=== PATIENT | male | born 2000 | race Caucasian/White ===

== ENCOUNTER 2024-04-05 10:33 | Emergency (ER) | payer OTHER, SELFPAY ==
[2024-04-05 10:36] VITALS: BP 139/82
--- NOTE | 2024-04-05 11:26 | ED.GENMED ---
History of Present Illness
<Clemente Crews MD, Resident - Last Filed: 04/05/24 13:29>
General
Chief Complaint: Throat Problem
Source: patient
Time Seen by Provider: 04/05/24 11:18
History of Present Illness
History of Present Illness:
Pt is a 23 YO M with history of recurrent tonsil/throat infections for last 6 months presenting today with progressive tonsillar pain on L side. He was seen initially in Urgent Care on 04/03 and was started on Augmentin, but per PCP recommendations,
came in to ER today due to increasing pain. This is his 6th infection this year. He reports SOB, throat pain (worse on L than R side) and mild cough. No headaches, NVD, Chest pain, hemoptysis, wheezing, fevers, or numbness and tingling. No current
sick contacts.
If applicable-neuro sx onset
Onset of symptoms known: Yes
Date of onset of symptoms: 03/29/24
Past History
<Clemente Crews MD, Resident - Last Filed: 04/05/24 13:29>
Past History
ED Past Surgical History: None
Review of Systems
<Clemente Crews MD, Resident - Last Filed: 04/05/24 13:29>
Review of Systems
Constitutional: Reports no symptoms
EENT: Reports sore throat and other (tonsillar pain)
Respiratory: Reports cough and trouble breathing (sensation of tonsil blocking breathing function)
Cardiac: Reports no symptoms
ABD/GI: Reports no symptoms
Musculoskeletal: Reports no symptoms
Skin: Reports no symptoms
Phy Exam
<Clemente Crews MD, Resident - Last Filed: 04/05/24 13:29>
General Physical Exam
General Presentation: well appearing and mild distress
General age: appears stated age
General Habitus: normal
General Mental: alert
General Hydration: appears well hydrated
ENT Exam
ENT Exam: swallowing well
Additional ENT: tonsillar erytheme and edema, small amount of exudates seen in throat
Cardiovascular Exam
Cardiovascular Exam: regular rate/rhythm, no edema and no JVD
Pulmonary Exam
Pulmonary Exam: lungs clear, no respiratory distress, no rales, chest non tender, no crackles, no rhonchi, no stridor and no wheezing
Course
<Clemente Crews MD, Resident - Last Filed: 04/05/24 13:29>
Orders/Labs/Results
Orders:
Orders
04/05/24 11:58
CT Neck With Iv Contrast Urgent
Comment:
Reason For Exam: left neck, tonsillar swelling
04/05/24 11:59
IV Insert/Care/Rem.- Treatment PRN
04/05/24 12:16
Complete Blood Count/With Diff Urgent
Comprehensive Metabolic Panel Urgent
Monotest Urgent
Rapid Strep Group A Urgent
EVELYN Source: Throat/Pharynx
Specimen Description:
Date Specimen was Collected: 04/05/24
Time Specimen was Collected: 12:03
04/05/24 12:26
Dexamethasone Sod Phosphate [Decadron] 20 mg .ROUTE .STK-MED ONE
Ketorolac [Toradol] 15 mg .ROUTE .STK-MED ONE
04/05/24 12:27
Dexamethasone Sod Phosphate [Decadron] 10 mg IV NOW STA
Ketorolac [Toradol] 15 mg IV NOW STA
Abnormal Lab Results
04/05/24
12:16
Carbon Dioxide 32 H mmol/L
(22-30)
04/05/24 12:16
04/05/24 12:16
Vital Signs
Initial and Last Documented VS:
Initial Vital Signs
Temp Pulse Resp BP Pulse Ox
98.4 F 69 18 139/82 95
04/05/24 10:36 04/05/24 10:36 04/05/24 10:36 04/05/24 10:36 04/05/24 10:36
Last Documented Vital Signs
Temp Pulse Resp BP Pulse Ox
98.4 F 63 16 124/79 99
04/05/24 10:36 04/05/24 12:37 04/05/24 12:37 04/05/24 12:37 04/05/24 12:37
<Young Jack, DO - Last Filed: 04/05/24 13:30>
Orders/Labs/Results
Orders:
Orders
04/05/24 11:58
CT Neck With Iv Contrast Urgent
Comment:
Reason For Exam: left neck, tonsillar swelling
04/05/24 11:59
IV Insert/Care/Rem.- Treatment PRN
04/05/24 12:16
Complete Blood Count/With Diff Urgent
Comprehensive Metabolic Panel Urgent
Monotest Urgent
Rapid Strep Group A Urgent
EVELYN Source: Throat/Pharynx
Specimen Description:
Date Specimen was Collected: 04/05/24
Time Specimen was Collected: 12:03
04/05/24 12:26
Dexamethasone Sod Phosphate [Decadron] 20 mg .ROUTE .STK-MED ONE
Ketorolac [Toradol] 15 mg .ROUTE .STK-MED ONE
04/05/24 12:27
Dexamethasone Sod Phosphate [Decadron] 10 mg IV NOW STA
Ketorolac [Toradol] 15 mg IV NOW STA
Abnormal Lab Results
04/05/24
12:16
Carbon Dioxide 32 H mmol/L
(22-30)
04/05/24 12:16
04/05/24 12:16
Vital Signs
Initial and Last Documented VS:
Initial Vital Signs
Temp Pulse Resp BP Pulse Ox
98.4 F 69 18 139/82 95
04/05/24 10:36 04/05/24 10:36 04/05/24 10:36 04/05/24 10:36 04/05/24 10:36
Last Documented Vital Signs
Temp Pulse Resp BP Pulse Ox
98.4 F 63 16 124/79 99
04/05/24 10:36 04/05/24 12:37 04/05/24 12:37 04/05/24 12:37 04/05/24 12:37
<Clemente Crews MD, Resident - Last Filed: 04/05/24 13:29>
MDM/Problems Addressed
Differential Diagnosis Includes:
Mononucleosis, Strep, Tonsillitis, Tonsillar Abscess
MDM/Problems Addressed:
Pt is a 23 YO M with history of recurrent tonsillar/ throat infections presenting to the ER with worsening symptoms. He was being managed on Augmentin. In the ED he was managed with IV Decadron and a neck CT was ordered to r/o abscess. CT negative.
Labs/throat culture pending.
Chronic conditions affecting care: Other
Acute Exacerbation and/or Progression of Chronic Illness: Other
<Clemente Crews MD, Resident - Last Filed: 04/05/24 13:29>
*Radiology
Radiology exam reviewed: radiology read reviewed (CT NAD)
*Pulse Oximetry
Patient hypoxic: no
*EKG
Interpreted by ED Provider?: NA
*Wrapper Cashier Interpretation
Rate: Wrapper Cashier- N/A
*Critical Care Note
Total Time (30-74mins, 75-104mins- exclusive of procedures): Not Applicable
<Clemente Crews MD, Resident - Last Filed: 04/05/24 13:29>
Patient Management
Social determinants of health affecting care: Living situation and Strong social support
Escalation/DeEscalation of care consider admission/obs:
admit not indicated
ED Attending Note
<Clemente Crews MD, Resident - Last Filed: 04/05/24 13:29>
-
Portions of this chart may have been created with voice recognition software.� Occasional wrong word or��sound alike� substitutions may have occurred due to the inherent limitations of voice recognition software.
<Young Jack, - Last Filed: 04/05/24 13:30>
ED Attending Note
Patient seen and examined by attending physician: Yes
I performed a history and physical exam of patient and discussed management with resident, I reviewed resident's note and agree with documented findings and plan of care.: Yes
ED Attending Note:
I reviewed and agree with history and treatment plan by Clemente Crews. My exam reveals mild lymphadenopathy in left posterior cervical chain, mildly tender. No abscess seen on exam. No signs of respiratory distress. Possibly viral pharyngitis.
CT neck no acute findings. Stable for discharge. Due to recurrent symptoms, will have patient follow-up with ENT. Short course of prednisone prescribed.
Discharge Plan
Departure
Patient Disposition: Home (Routine Discharge)
Date of Disposition: 04/05/24
Time of Disposition: 13:23
Patient with high blood pressure during this ER visit?: Yes
Condition: Good
Discharge Problem:
Acute sore throat
Instructions: Sore Throat, Adult (DC), BLOOD PRESSURE
Prescriptions:
New
prednisone 50 mg tablet
50 mg PO DAILY Qty: 5 0RF
Referrals:
Manny Grove MD [Active] - Call in 1-3 days for appt
Wilian Flaherty MD [Family Provider] -
Interventions
Interventions:
*Risk Screen - Suicide Last Done: 04/05/24 10:39
*General Assessment Last Done: 04/05/24 10:39
*Neglect/Abuse Screening Last Done: 04/05/24 10:39
ED-EENT Assessment Last Done: 04/05/24 11:58
ED- Pulmonary Assessment Last Done: 04/05/24 11:58
Discharge Date and Time
Print Language: LITHUANIAN
[2024-04-05] MEDS: DECADRON 10 MG IV (12:31)
[2024-04-05] MEDS: TORADOL 15 MG IV (12:31)
[2024-04-05 12:35] LABS: % Basophils 0.8 % (0-2); % Eosinophils 5.4 % (0-6); % Immature Granulocytes 0.1 % (0-0.5); % Lymphocytes 32.2 % (20.5-51.1); % Monocytes 6.4 % (1.7-9.3); % Neutrophils 55.1 % (42.2-75.2); Absolute Basophils 0.1 10^3/uL (0-0.2); Absolute Eosinophils 0.4 10^3/uL (0-0.7); Absolute Lymphocytes 2.5 10^3/uL (1.2-3.4); Absolute Monocytes 0.5 10^3/uL (0.1-0.6); Absolute Neutrophils 4.2 10^3/uL (1.4-6.5); Hematocrit 44.9 % (39.0-52.0); Mean Corp Hgb Conc. 33.4 g/dL (33.0-37.0); Mean Corpuscular Hgb 30.7 pg (27.0-31.0); Mean Corpuscular Volume 91.8 fL (80.0-94.0); Mean Platelet Volume 9.8 fL (7.4-10.4); Nucleated Red Blood Cells % 0 % (-); Platelet Count 285 10^3/uL (130-400); Red Blood Cell Count 4.89 10^6/uL (4.70-6.10); Red Cell Dist. Width 12.5 % (11.5-14.5); White Blood Cell Count 7.7 10^3/uL (4.8-10.8)
[2024-04-05 12:37] VITALS: BP 124/79
[2024-04-05 12:43] LABS: ALT (SGPT) 17 U/L (0-50); AST (SGOT) 29 U/L (17-59); Alkaline Phosphatase 66 U/L (38-126); Blood Urea Nitrogen 9 mg/dl (9-20); Carbon Dioxide 32 mmol/L (22-30); Chloride 100 mmol/L (98-107); Glucose 92 mg/dl (70-99); Potassium 4.2 mmol/L (3.5-5.1); Sodium 140 mmol/L (135-145); Total Bilirubin 0.8 mg/dl (0.2-1.3); Total Protein 7.9 g/dl (6.3-8.2); eGFR > 60.00
[2024-04-05 13:32] LABS: Monotest Negative (Negative)
== END 2024-04-05 13:49 | disposition home or self-care (01) ==
LOC: EMR 10:33
PROVIDERS: EMERGENCY PHYSICIAN Emergency Medicine; FAMILY PHYSICIAN Internal Medicine
DX: J02.9 Acute pharyngitis, unspecified (principal); R06.02 Shortness of breath; R05.9 Cough, unspecified; R59.1 Generalized enlarged lymph nodes; R03.0 Elevated blood-pressure reading, without diagnosis of hypertension; Z86.19 Personal history of other infectious and parasitic diseases
CPT/HCPCS: 99284; 96374; 96375; 70491; 80053; 85025; 86308; 87070; 87880; Q9967

== ENCOUNTER 2024-09-09 19:45 | Day surgery (SDC) | payer OTHER, SELFPAY ==
[2024-09-09] VITALS (14 sets, daily range): BP systolic 98–147; BP diastolic 52–102; BMI 26.9
[2024-09-09] MEDS: OMNIPAQUE 50 ML PO (12:54)
[2024-09-09 13:12] LABS: % Basophils 0.3 % (0-2); % Eosinophils 1.8 % (0-6); % Immature Granulocytes 0.1 % (0-0.5); % Lymphocytes 31.4 % (20.5-51.1); % Neutrophils 58.4 % (42.2-75.2); Absolute Eosinophils 0.1 10^3/uL (0-0.7); Absolute Lymphocytes 2.4 10^3/uL (1.2-3.4); Absolute Monocytes 0.6 10^3/uL (0.1-0.6); Absolute Neutrophils 4.5 10^3/uL (1.4-6.5); Hematocrit 42.2 % (39.0-52.0); Hemoglobin 14.4 g/dL (13.0-18.0); Mean Corp Hgb Conc. 34.1 g/dL (33.0-37.0); Mean Corpuscular Hgb 30.8 pg (27.0-31.0); Mean Corpuscular Volume 90.2 fL (80.0-94.0); Mean Platelet Volume 9.6 fL (7.4-10.4); Nucleated Red Blood Cells % 0 % (-); Platelet Count 275 10^3/uL (130-400); Red Blood Cell Count 4.68 10^6/uL (4.70-6.10); Red Cell Dist. Width 12.8 % (11.5-14.5); White Blood Cell Count 7.8 10^3/uL (4.8-10.8)
[2024-09-09 13:27] LABS: ALT (SGPT) 17 U/L (0-50); AST (SGOT) 22 U/L (17-59); Albumin 4.8 g/dl (3.5-5.0); Alkaline Phosphatase 61 U/L (38-126); Blood Urea Nitrogen 8 mg/dl (9-20); Calcium 9.7 mg/dl (8.4-10.2); Carbon Dioxide 31 mmol/L (22-30); Chloride 99 mmol/L (98-107); Glucose 93 mg/dl (70-99); Lipase 59 U/L (23-300); Potassium 3.8 mmol/L (3.5-5.1); Sodium 139 mmol/L (135-145); Total Bilirubin 0.9 mg/dl (0.2-1.3); Total Protein 7.3 g/dl (6.3-8.2); eGFR > 60.00
[2024-09-09 13:40] LABS: Urine Albumin Negative (Neg - Trace); Urine Bilirubin Negative (Negative); Urine Character Clear (Clear); Urine Color Yellow; Urine Glucose Negative (Negative); Urine Ketone Negative (Negative); Urine Leukocyte Negative (Negative); Urine Nitrite Negative (Negative); Urine Occult Blood Negative (Negative); Urine Specific Gravity 1.005 (<1.030); Urine Urobilinogen Negative (Neg - 1+)
--- NOTE | 2024-09-09 14:54 | ED.GENMED ---
History of Present Illness
General
Chief Complaint: Abdominal Pain
Source: patient
Exam Limitations: none
Time Seen by Provider: 09/09/24 14:29
Nursing documentation reviewed up to this point in time: agreed with
History of Present Illness
History of Present Illness:
24 y/o M with no sig pmh
here with lower abd pain, RLQ, since yesterday
initially more mild and gradually worse
does come in waves but is now constant
has lack of appetite and some mild nauesa
no vomiting, diarrhea
had bm this morning that was a little dark but took pepto yesteday
he had some chills yesterday but no known fever
has never had surgery
had something similar a few months ago that lastwed a week, he thought it was just gas pain, resolved
Past History
Past History
ED Past Medical History: None
ED Past Surgical History: None
Social History
Tobacco: Non-smoker
Alcohol: None
Drug: None
Personal: Single
Living: with family
Employment: Employed
Review of Systems
Review of Systems
Allergies reviewed?: Yes
All Other Systems: Not applicable
Phy Exam
Physical Exam
Physical Exam:
GENERAL: Alert , in no apparent distress
EYE: pupils equal and reactive
NECK: Supple
ENT: o/p clr, mmm.
CARDIAC: Regular rate and rhythm .
LUNGS: Clear breath sounds bilaterally, no acute respiratory distress, no wheezes/rales/rhonchi
ABDOMEN: Soft, moderate right lower quadrant tenderness, McBurney's point tenderness, no r/g, no cvat, normal bowel sounds
NEUROLOGICAL: Alert and oriented, no focal neuro deficits
SKIN: Warm and dry, skin intact.
MUSCULOSKELETAL: No edema, well perfused.
PSYCH: Normal and appropriate interaction.
Course
Orders/Labs/Results
Orders:
Orders
09/09/24 12:51
Iohexol [Omnipaque] 50 ml .ROUTE .STK-MED ONE
09/09/24 12:54
Iohexol [Omnipaque] See Protocol PO NOW STA
09/09/24 12:58
Complete Blood Count/With Diff Urgent
Comprehensive Metabolic Panel Urgent
Lipase Urgent
Urinalysis Reflex To Culture Urgent
Date Specimen was Collected: 09/09/24
Time Specimen was Collected: 12:49
09/09/24 13:33
CT Abd/pel W Iv And Oral Contr Urgent
Comment:
Reason For Exam: RLQ pain
Iohexol [Omnipaque] See Protocol PO NOW STA
09/09/24 Dinner
Clear Liquid
At Your Request: Full Participation
Ketorolac [Toradol] 15 mg .ROUTE .STK-MED ONE
09/09/24 15:03
Ketorolac [Toradol] 15 mg IV NOW STA
09/09/24 15:55
Piperacillin/Tazo 3.375 Gram [Zosyn] 3.375 gram in 50 ml IV NOW
09/09/24 18:53
Admit Patient As Directed
Co-Sign Provider:
Level of Care: Post Proc/Surg Recovery
Assign to:: Medical/Surgical
Physician / Group: Dr. Morocho
Diagnosis: Acute Appendicitis
Reason for Overnight Stay: Standard of Care
Code Status As Directed
Resuscitation Status: Full Code
HYDROmorphone [Dilaudid] 0.5 mg IV Q2HPRN PRN
Ketorolac [Toradol] 10 mg IV Q6H PRN
Activity As Directed
Activity Level: Out of Bed-Early Mobility
Intake/ Output As Directed
Frequency: Per unit guidelines
Vital Signs As Directed
Frequency: Per unit guidelines
PRN Pain Medication Management As Directed
May give lesser potent ordered pain med per pt: Yes
preference::
Protocol:: Medication orders for pain may be administered in a
manner that supports deferring to patient preference
when the pt is:
- Requesting an ordered lesser potent pain medication.
Least to most potent pain medications are defined
as: acetaminophen < NSAID < tramadol < opioids
(morphine, oxycodone, hydromorphone).
- Requesting a lesser dose of the same medication IF
ORDERED.
- Requesting a less intrusive route of administration
if both routes are prescribed by the provider (PO <
IV).
09/09/24 18:57
Pneumatic Compression Sleeves As Directed
Type: Thigh high
DX Deep Vein Thrombosis Video Routine
09/09/24 19:02
HYDROmorphone [Dilaudid] 0.25 mg IV PACU-Q5MPRN PRN
HYDROmorphone [Dilaudid] 0.5 mg IV PACU-Q5MPRN PRN
Ondansetron Injectable [Zofran] 4 mg IV PACU-ONCEPRN PRN
Prochlorperazine [Compazine] 5 mg IV PACU-ONCEPRN PRN
Notify MD As Directed
Notify physician if: for SDS patients with known or suspected sleep obstructive sleep apnea, monitor in the
PACU.
Notify MD for any apneic/desaturation episodes
O2 Therapy [RESP] Urgent
Titrate/Wean O2 to maintain O2 sat greater than (%): 92
Special Instructions: -Provide supplemental oxygen to achieve O2 sat of 92% or greater.
-After 15 min, may wean O2 and discontinue if patient is able to maintain O2 sat of 92%
or greater during recovery period.
If patient is a discharge home, without oxygen therapy, notify anestheiologist if
unable to maintain O2 SAT of 92% or greater on room air for MD clearance.
09/09/24 19:58
Lidocaine 2% Mpf [Xylocaine Mpf 2%] 100 mg .ROUTE .STK-MED ONE
Rocuronium Milton [Rocuronium] 50 mg .ROUTE .STK-MED ONE
09/09/24 20:01
Fentanyl Citrate/Pf [Sublimaze] 100 mcg .ROUTE .STK-MED ONE
09/09/24 20:02
Fentanyl Citrate/Pf [Sublimaze] 100 mcg .ROUTE .STK-MED ONE
Midazolam HCl [Versed] 2 mg .ROUTE .STK-MED ONE
Midazolam HCl [Versed] 5 mg .ROUTE .STK-MED ONE
Midazolam HCl [Versed] 5 mg .ROUTE .STK-MED ONE
Ondansetron Injectable [Zofran] 4 mg .ROUTE .STK-MED ONE
Propofol [Diprivan] 20 ml .ROUTE .STK-MED
Rocuronium Milton [Rocuronium] 50 mg .ROUTE .STK-MED ONE
09/09/24 20:03
Midazolam HCl [Versed] 2 mg .ROUTE .STK-MED ONE
09/09/24 20:49
Bupivacaine 0.5%Pf/Epinephrin [Sensorcain-Mpf Epi 0.5%-0.0005] 30 ml .ROUTE .STK-MED ONE
09/09/24 21:39
HYDROmorphone [Dilaudid] 1 mg .ROUTE .STK-MED ONE
09/09/24 21:44
Dexamethasone Sod Phosphate [Decadron] 20 mg .ROUTE .STK-MED ONE
Ondansetron Injectable [Zofran] 4 mg .ROUTE .STK-MED ONE
Sugammadex Sodium [Bridion] 200 mg .ROUTE .STK-MED ONE
09/09/24 21:47
OR Pathology Routine
Pre-Operative Diagnosis: acute appendicitis
Operative Procedure: appendectomy
Surgeon: rashawn
Circulating Nurse: susy
Specimen Type: appendix
09/09/24 22:00
Piperacillin/Tazo 3.375 Gram [Zosyn] 3.375 gram in 50 ml IV Q6H
09/09/24 22:07
HYDROmorphone [Dilaudid] 1 mg .ROUTE .STK-MED ONE
09/09/24 23:00
Flush (0.9% Sodium Chloride) [Flush (Nss)] See Dose Instructions IV PER PROTOCOL
09/10/24 00:00
Acetaminophen [Tylenol] 650 mg PO Q4HWA
09/10/24 01:31
Pt Screening Request from [facility] Routine
09/10/24 04:44
Basic Metabolic Panel IN AM
Complete Blood Count/With Diff IN AM
09/10/24 Breakfast
Regular
At Your Request: Full Participation
09/10/24 08:47
Oxycodone [Roxicodone] 5 mg PO Q4HPRN PRN
09/10/24 12:00
Ibuprofen [Motrin] 600 mg PO Q6H
09/11/24 08:00
Escitalopram Oxalate [Lexapro] 20 mg PO DAILY
Lamotrigine [Lamictal] 100 mg PO DAILY
09/11/24 11:25
Discharge Patient As Directed
Is patient a candidate for the influenza vaccine?: No
Do you have a designated caregiver: Yes-same as spokesperson
Abnormal Lab Results
09/09/24 09/10/24
12:58 04:44
RBC 4.68 L 10^6/uL 4.61 L 10^6/uL
(4.70-6.10) (4.70-6.10)
MCH 31.2 H pg
(27.0-31.0)
Absolute Neuts (auto) 7.3 H 10^3/uL
(1.4-6.5)
Absolute Lymphs (auto) 0.8 L 10^3/uL
(1.2-3.4)
Neutrophils % 88.7 H %
(42.2-75.2)
Lymphocytes % 9.4 L %
(20.5-51.1)
Monocytes % 1.5 L %
(1.7-9.3)
Carbon Dioxide 31 H mmol/L
(22-30)
BUN 8 L mg/dl
(9-20)
Glucose 132 H mg/dl
(70-99)
09/10/24 04:44
09/10/24 04:44
Vital Signs
Initial and Last Documented VS:
Initial Vital Signs
Temp Pulse Resp BP Pulse Ox
36.9 C 75 16 143/102 98
09/09/24 12:46 09/09/24 12:46 09/09/24 12:46 09/09/24 12:46 09/09/24 12:46
Last Documented Vital Signs
Temp Pulse Resp BP Pulse Ox
36.9 C 62 16 110/67 96
09/11/24 11:41 09/11/24 11:41 09/11/24 11:41 09/11/24 11:41 09/11/24 11:41
MDM/Problems Addressed
Differential Diagnosis Includes:
acute appendicitis, kidney stone, constipation
MDM/Problems Addressed:
24 y/o M with RLQ pain since yesterday
anorexia
nausea
no fever
tender RLQ
mcburney's point
no guarding
no rebound
wbc normal
ct shows acute appendicitis
awaiting acceptance from gen surgery
*Critical Care Note
Total Time (30-74mins, 75-104mins- exclusive of procedures): Not Applicable
ED Attending Note
-
Portions of this chart may have been created with voice recognition software.� Occasional wrong word or��sound alike� substitutions may have occurred due to the inherent limitations of voice recognition software.
Discharge Plan
Departure
Patient Disposition: Admit
Date of Disposition: 09/09/24
Time of Disposition: 17:22
Admit to: Med/Surg
Admit to doctor: Rashawn
Presentation/result/management discussed w/ accepting MD/DO: Surgery
Patient with high blood pressure during this ER visit?: No
Condition: Serious
Covid-19: Not Applicable
Discharge Problem:
Acute appendicitis
Interventions
Interventions:
*Risk Screen - Suicide Last Done: 09/09/24 22:00
*General Assessment Last Done: 09/09/24 14:35
*Neglect/Abuse Screening Last Done: 09/09/24 12:46
*Nursing Disposition Last Done: 09/09/24 19:58
TF-Vgjepj-Lezvwowitm Assessment Last Done: 09/09/24 14:35
Discharge Date and Time
Discharge Date/Time: 09/09/24 19:59
[2024-09-09] MEDS: TORADOL 15 MG IV (15:03)
[2024-09-09] MEDS: ZOSYN 50 IV ×2 (16:31→23:01)
--- NOTE | 2024-09-09 17:19 | HPS.HSE ---
Family Physician
-
Family Physician: Wilian Flaherty
Chief Complaint
-
Abdominal pain
History of Present Illness
This is a 24-year-old male with a history significant for depression on Lexapro and Lamictal who presents with a 1 day history of periumbilical/right lower quadrant abdominal pain. Endorses some nausea and chills yesterday. The pain has not gotten
significantly worse but has not improved either. The patient denies Fever, Chest Pain, Shortness Of Breath, Vomiting, changes in urinary and bowel habits, unintentional weight loss, jaundice, icterus, acolic stools.
Last Endoscopy: Never
Last colonoscopy: Never
Medical History
Past Medical History
Past Medical History: Reports Other (Depression)
Past Surgical History: Reports None
Social History
Unable to obtain full social history at this time due to: Dementia
Tobacco: Non-smoker
Alcohol: None
Drug: None
Personal: Single
Employment: Employed
Family History
Family History: Not pertinent
Allergies / Home Medications
Allergies reflects when Allergies were last updated in [facility].
Home Medications with original date entered in [facility]
Allergy/Medication List:
None
Review of Systems
-
A 12 point ROS was completed and negative except as noted: Yes
Physical Exam
Vital Signs
Vital Signs
Temp Pulse Resp BP Pulse Ox
98.4 F 78 16 146/96 98
09/09/24 12:46 09/09/24 15:52 09/09/24 15:52 09/09/24 17:00 09/09/24 12:46
Physical Exam
General: Well Developed
HEENT: NormoCephalic
Respiratory: Non Labored Respirations
GI: Soft, Non Distended and Tender
Laboratory Results
-
09/09/24 12:58
09/09/24 12:58
Laboratory Results
Total Bilirubin 0.9 mg/dl (0.2-1.3) 09/09/24 12:58
AST 22 U/L (17-59) 12 12:58
ALT 17 U/L (0-50) 09/09/24 12:58
Alkaline Phosphatase 61 U/L (38-126) 09/09/24 12:58
Lipase 59 U/L (23-300) 09/09/24 12:58
Data Reviewed
-
CT Scan: Image Personally Visualized and interpreted, Report Reviewed by me, Discussed with Physician and Discussed with Patient
Lab Data: Labs Reviewed by me, Discussed with Physician and Discussed with Patient
Impression/Plan
-
IMPRESSION:
This is a 24-year-old male with acute appendicitis
PLAN:
Will plan for a laparoscopic appendectomy tonight.
N.p.o., IV fluids, IV antibiotics.
Risks/Benefits/Alternatives, expected postoperative course and possible complications (bleeding, infection, injury to surrounding structures, acute/chronic pain) discussed at length. Patient wishes to proceed with surgery. All questions answered.
Consent obtained.
I spent 60 minutes in total for the care of this patient today including direct patient care and counseling, reviewing labs, imaging, coordination of care, as well as documentation.
--- NOTE | 2024-09-09 17:23 | W.SUR.PREOP ---
Pre-Operative Surgical Note
-
I have examined this patient prior to the performance of the scheduled procedure.
The patient's condition is unchanged from the time of the current History and
Physical and the patient is able to undergo the scheduled procedure.
--- NOTE | 2024-09-09 22:00 | W.IMMPOSTOP ---
Surgical Immed Post Op Note
-
Primary Surgeon: Marin Morocho MD
Assisting Surgeon: None
Pre-op Diagnosis: Acute appendicitis
Post-op Diagnosis: Same
Procedure Performed: Laparoscopic appendectomy
Anesthesia Type: General
Specimen / Cultures: None
Estimated Blood Loss: 3 cc
Complications: None
Operative Findings: Three 5 mm port appendectomy after Veress entry. Serpentine appendix that was inflamed but not perforated going up the all lateral right colon and then folded back on itself. The portion of the appendix that was plastered to
the colon was gently dissected off of the colon wall using sharp dissection. The base of the appendix appeared clean and was ligated with 2-0 PDS Endoloops.
POST OP PLAN:
Imaging: None
Labs: Routine AM
Diet: Advance to Regular as tolerated
Analgesia: Tylenol 650mg q6 Adam, Charlene 5mg q6 PRN, Dilaudid 0.5mg q2h PRN
Neuro/vascular checks: q4h
AC/AP: Hold Therapeutic AC, Ok for DVT PPx
Activity: Ad Candy
Wound/Incisions/Drains: Routine
Abx: Will continue antibiotics while admitted.
Dispo: RNF, anticipate discharge home tomorrow.
--- NOTE | 2024-09-09 22:02 | OR.RPT ---
Operative Report
Operative Report
Patient Name: Jasper Wade
: 2000
Date of Operation: 09/09/2024
Preoperative Diagnosis: Acute Appendicitis
Postoperative Diagnosis: Same
Procedure(s):
Laparoscopic Appendectomy
Surgeon(s):
Dr. Morocho
Gunner'S Mate G(s):
None
Anesthesia: General
Estimated Blood Loss: 3 cc
Urine Output: None
Drains/Lines/Implants: None
Specimens:
1. Appendix
HPI/Surgical Indications:
This is a 24-year-old male who presents with a 1 day history of abdominal pain. Exam, labs and imaging are consistent with acute appendicitis. Risks/Benefits/Alternatives were discussed at length, and the patient agreed to proceed with surgery.
Operative Findings: Three 5 mm port appendectomy after Veress entry. Serpentine appendix that was inflamed but not perforated going up the all lateral right colon and then folded back on itself. The portion of the appendix that was plastered to
the colon was gently dissected off of the colon wall using sharp dissection. The base of the appendix appeared clean and was ligated with 2-0 PDS Endoloops.
Procedure Description:
The patient was placed in the supine position, with the left arm tucked, and general anesthesia was induced. The abdomen was prepared and draped in a sterile fashion so as to expose the entire abdomen. A surgical time out was taken. Abdominal access
was obtained with aleft subcostal Veress which required 2 passes followed by a left lower quadrant 5 mm mm Optiview trocar entry. After confirming no injury on entrance, two additional 5mm ports were placed in the suprapubic area just off midline
and just below the umbilicus it also appeared somewhat serpentine traveling up the. The patient was placed in Trendelenberg with the right slightly up . The appendix was identified and a window was created in the mesoappendix. The appendix was
suppurative and inflamed but not perforated. Colon and then back on itself. There was a portion of the appendix that abutted the colon very densely, this was dissected off using sharp dissection. Using a laparoscopic bipolar energy device, the
meso appendix was divided. The base of the appendix appeared uninvolved and was ligated/divided using two 0-PDS Endoloops and the energy device. The appendix was placed in a specimen retrieval bag. There was some blood in the field that was
suctioned up. No irrigation was used. Hemostasis was confirmed and the ports were removed under visualization. The specimen was passed off the field. The umbilical port was closed with a [id number] 0-PDS and the skin for all three ports was
closed with interrupted monocryls and covered with dermabond. The patient was awoken from anesthesia in good condition and transported to the recovery area.
I was the attending physician and performed the procedure with no assistance. I was present for all portions of the case.
Marin Morocho MD
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
[2024-09-09] MEDS: TYLENOL 650 MG PO (23:19)
[2024-09-10 00:50] VITALS: BP 107/63
[2024-09-10] MEDS: TORADOL 10 MG IV (02:00)
[2024-09-10 03:10] VITALS: BP 102/62
[2024-09-10] MEDS: ZOSYN 50 IV ×4 (04:15→21:52)
[2024-09-10] MEDS: TYLENOL 650 MG PO ×5 (04:15→20:49)
[2024-09-10] MEDS: DILAUDID 0.5 MG IV ×2 (04:31→07:39)
[2024-09-10 05:23] LABS: % Immature Granulocytes 0.4 % (0-0.5); % Lymphocytes 9.4 % (20.5-51.1); % Monocytes 1.5 % (1.7-9.3); % Neutrophils 88.7 % (42.2-75.2); Absolute Lymphocytes 0.8 10^3/uL (1.2-3.4); Absolute Monocytes 0.1 10^3/uL (0.1-0.6); Absolute Neutrophils 7.3 10^3/uL (1.4-6.5); Hematocrit 42.7 % (39.0-52.0); Hemoglobin 14.4 g/dL (13.0-18.0); Mean Corp Hgb Conc. 33.7 g/dL (33.0-37.0); Mean Corpuscular Hgb 31.2 pg (27.0-31.0); Mean Corpuscular Volume 92.6 fL (80.0-94.0); Mean Platelet Volume 9.9 fL (7.4-10.4); Nucleated Red Blood Cells % 0 % (-); Platelet Count 269 10^3/uL (130-400); Red Blood Cell Count 4.61 10^6/uL (4.70-6.10); Red Cell Dist. Width 12.9 % (11.5-14.5); White Blood Cell Count 8.2 10^3/uL (4.8-10.8)
[2024-09-10 05:51] LABS: Blood Urea Nitrogen 11 mg/dl (9-20); Calcium 9.3 mg/dl (8.4-10.2); Carbon Dioxide 29 mmol/L (22-30); Chloride 100 mmol/L (98-107); Estimated Creatinine Clearance 116 ml/min; Glucose 132 mg/dl (70-99); Potassium 4.5 mmol/L (3.5-5.1); Sodium 139 mmol/L (135-145); eGFR > 60.00
[2024-09-10 08:00] VITALS: BP 124/71
--- NOTE | 2024-09-10 08:59 | CM ---
Patient seen at bedside. Patient states that he lives alone in an apartment. Patient stated that his parents live in [place] and he may go there after discharge as his father would be available if he had any needs. Patient PCP is Dr. Richter and
Patient stated that he uses the [facility] in [place]. Patient complaining of pain, nursing updated. Patient plan uncertain as he feels he has so much pain. CM will continue to follow for discharge planning needs.
Plan; home with VN vs home with no needs
--- NOTE | 2024-09-10 10:29 | W.PN.GS2 ---
Addendum entered and electronically signed by Tonny Hernandez MD 09/10/24 11:51:
I saw and examined the patient.
The Dowel Sander Operator's note was reviewed and I agree with the note.
Comment: C/o pain, denies n/v, had a full breakfast without issues. Exam approp. Will re-eval this afternoon, possible DC home
Original Note:
Today's Communication / Plan
-
Pain control
dispo planning
Assessment / Plan
-
24 yo male presenting with acute appendicitis now POD #1 lap appi
AFVSS
Notes pain/tenderness on exam, limiting his movement d/t discomfort
Tolerating diet thus far
--Continue regular diet and follow for tolerance
--Add oral oxycodone prn with scheduled tylenol/ibuprofen
--OOB/Ambulate
Anticipate discharge later today if continues to tolerate diet once pain controlled
Subjective Data
-
Date of Service: September 10, 2024
Patient seen and examined at bedside with Dr. Hernandez. Denies n/v. Tolerating diet but with some bloating/discomfort after eating a larger breakfast this morning. Pain with movement. Passing flatus.
Objective Data
-
Intake and Output
09/09/24 09/10/24 09/11/24
06:59 06:59 06:59
Intake Total 120 / 120
Output Total 250 / 250
Balance -130 / -130
Intake:
Oral fluids 120 / 120
Output:
Urine, Voided 250 / 250
Vital Signs
Temp Pulse Resp BP Pulse Ox
98.2 F 83 16 124/71 96
09/10/24 08:00 09/10/24 08:00 09/10/24 08:00 09/10/24 08:00 09/10/24 08:00
Lab Results
09/10/24 04:44
09/10/24 04:44
Calcium 9.3 mg/dl (8.4-10.2) 09/10/24 04:44
Total Bilirubin 0.9 mg/dl (0.2-1.3) 09/09/24 12:58
AST 22 U/L (17-59) 09/09/24 12:58
ALT 17 U/L (0-50) 09/09/24 12:58
Alkaline Phosphatase 61 U/L (38-126) 09/09/24 12:58
Total Protein 7.3 g/dl (6.3-8.2) 09/09/24 12:58
Albumin 4.8 g/dl (3.5-5.0) 09/09/24 12:58
Physical Exam
-
NAD
ABD soft, nd, tender to RLQ
Incisions clear, dry, intact
[2024-09-10] MEDS: MOTRIN 600 MG PO ×2 (11:20→17:54)
[2024-09-10] MEDS: ROXICODONE 5 MG PO ×2 (15:07→22:50)
[2024-09-10 16:00] VITALS: BP 106/63
[2024-09-10 20:47] VITALS: BP 120/65
[2024-09-10] MEDS: FLUSH (NSS) 1 FLUSH IV (21:53)
[2024-09-10 23:00] VITALS: BP 102/64
[2024-09-11] MEDS: TYLENOL PO (01:09)
[2024-09-11] MEDS: MOTRIN PO (01:09)
[2024-09-11] MEDS: ZOSYN 50 IV ×2 (04:44→09:08)
[2024-09-11] MEDS: TYLENOL 650 MG PO ×2 (04:44→09:08)
[2024-09-11] MEDS: MOTRIN 600 MG PO (05:21)
[2024-09-11 07:24] VITALS: BP 121/74
[2024-09-11] MEDS: ROXICODONE 5 MG PO (09:07)
[2024-09-11] MEDS: LEXAPRO 20 MG PO (09:08)
[2024-09-11] MEDS: LAMICTAL 100 MG PO (09:08)
--- NOTE | 2024-09-11 11:25 | W.PN.GS2 ---
Addendum entered and electronically signed by Tonny Hernandez MD 09/11/24 12:09:
I saw and examined the patient.
The Instructor Warper's note was reviewed and I agree with the note.
Comment: Improved. Ambulating, pain controlled, yessi PO. Exam approp. OK for DC home
Original Note:
Today's Communication / Plan
-
dispo planning
Assessment / Plan
-
24 yo male presenting with acute appendicitis now POD #2 lap appi
AFVSS
Tolerating diet, +BM
Pain better controlled
--Continue regular diet and follow for tolerance
--Continue oral oxycodone prn with scheduled tylenol/ibuprofen
--OOB/Ambulate
Discharge to home
Subjective Data
-
Date of Service: September 11, 2024
Patient seen and examined at bedside with Dr. Hernandez. Pain better controlled today and moving more freely. Denies n/v. Had a BM overnight. Tolerating diet.
Objective Data
-
Intake and Output
09/10/24 09/11/24 09/12/24
06:59 06:59 06:59
Intake Total 120 / 120 1060 / 1060
Output Total 250 / 250
Balance -130 / -130 1060 / 1060
Intake:
Oral fluids 120 / 120 960 / 960
IV piggybacks 100 / 100
Output:
Urine, Voided 250 / 250
Other:
Number of approximated MODERATE 2
amounts of urine
Vital Signs
Temp Pulse Resp BP Pulse Ox
97.4 F 61 16 121/74 99
09/11/24 07:24 09/11/24 07:24 09/11/24 07:24 09/11/24 07:24 09/11/24 09:04
Lab Results
09/10/24 04:44
09/10/24 04:44
Calcium 9.3 mg/dl (8.4-10.2) 12 04:44
Total Bilirubin 0.9 mg/dl (0.2-1.3) 09/09/24 12:58
AST 22 U/L (17-59) 09/09/24 12:58
ALT 17 U/L (0-50) 09/09/24 12:58
Alkaline Phosphatase 61 U/L (38-126) 09/09/24 12:58
Total Protein 7.3 g/dl (6.3-8.2) 09/09/24 12:58
Albumin 4.8 g/dl (3.5-5.0) 09/09/24 12:58
Physical Exam
-
NAD
ABD soft, nd, minimally tender to RLQ
Incisions clear, dry, intact
[2024-09-11 11:41] VITALS: BP 110/67
== END 2024-09-11 12:10 | disposition home or self-care (01) ==
LOC: SDS 19:45
PROVIDERS: Emergency Medicine; ATTENDING PHYSICIAN Surgery; EMERGENCY PHYSICIAN Emergency Medicine; FAMILY PHYSICIAN Internal Medicine
DX: K35.80 Unspecified acute appendicitis (principal)
CPT/HCPCS: 44970; 88304; 74177; 80048; 80053; 81003; 83690; 85025; 99285; C1776; Q9967

== ENCOUNTER 2024-09-28 18:01 | Emergency (ER) | payer OTHER, SELFPAY ==
[2024-09-28 18:12] VITALS: BP 146/90
[2024-09-28 18:40] LABS: % Basophils 1.1 % (0-2); % Eosinophils 3.9 % (0-6); % Immature Granulocytes 0.2 % (0-0.5); % Lymphocytes 39.8 % (20.5-51.1); % Monocytes 7.2 % (1.7-9.3); % Neutrophils 47.8 % (42.2-75.2); Absolute Basophils 0.1 10^3/uL (0-0.2); Absolute Eosinophils 0.3 10^3/uL (0-0.7); Absolute Lymphocytes 2.5 10^3/uL (1.2-3.4); Absolute Monocytes 0.5 10^3/uL (0.1-0.6); Absolute Neutrophils 3.1 10^3/uL (1.4-6.5); Hematocrit 41.2 % (39.0-52.0); Hemoglobin 14.3 g/dL (13.0-18.0); Mean Corp Hgb Conc. 34.7 g/dL (33.0-37.0); Mean Corpuscular Volume 89.2 fL (80.0-94.0); Mean Platelet Volume 9.5 fL (7.4-10.4); Nucleated Red Blood Cells % 0 % (-); Platelet Count 314 10^3/uL (130-400); Red Blood Cell Count 4.62 10^6/uL (4.70-6.10); Red Cell Dist. Width 12.8 % (11.5-14.5); White Blood Cell Count 6.4 10^3/uL (4.8-10.8)
[2024-09-28 18:55] LABS: COVID-19 Antigen Negative (Negative)
[2024-09-28 19:05] LABS: ALT (SGPT) 20 U/L (0-50); AST (SGOT) 26 U/L (17-59); Albumin 4.7 g/dl (3.5-5.0); Alkaline Phosphatase 69 U/L (38-126); Blood Urea Nitrogen 8 mg/dl (9-20); Calcium 9.6 mg/dl (8.4-10.2); Carbon Dioxide 28 mmol/L (22-30); Chloride 100 mmol/L (98-107); Glucose 97 mg/dl (70-99); Potassium 3.9 mmol/L (3.5-5.1); Sodium 137 mmol/L (135-145); Total Bilirubin 0.3 mg/dl (0.2-1.3); Total Protein 7.3 g/dl (6.3-8.2); eGFR > 60.00
[2024-09-28] MEDS: OMNIPAQUE 50 ML PO (20:19)
[2024-09-28 20:24] VITALS: BMI 26.7
[2024-09-28 20:26] VITALS: BP 127/85
[2024-09-28 21:00] VITALS: BP 127/79
[2024-09-28 23:04] LABS: Urine Albumin Negative (Neg - Trace); Urine Bilirubin Negative (Negative); Urine Character Clear (Clear); Urine Color Straw; Urine Glucose Negative (Negative); Urine Ketone Negative (Negative); Urine Leukocyte Negative (Negative); Urine Nitrite Negative (Negative); Urine Occult Blood Negative (Negative); Urine Specific Gravity 1.005 (<1.030); Urine Urobilinogen Negative (Neg - 1+)
--- NOTE | 2024-09-28 23:23 | ED.GENMED ---
History of Present Illness
General
Chief Complaint: Fever
Source: patient
Exam Limitations: none
Time Seen by Provider: 09/28/24 19:55
Nursing documentation reviewed up to this point in time: agreed with
History of Present Illness
History of Present Illness:
Patient to ED [facility] complaint of fever and RLQ abd pain. Symptoms started today. States he had an appendectomy 3 weeks ago. No issues until today. Brought self to ED for eval. Denies n/v/d.
Past History
Past History
ED Past Medical History: None
ED Past Surgical History: None
Social History
Tobacco: Non-smoker
Alcohol: None
Drug: None
Personal: Single
Living: with family
Employment: Employed
Review of Systems
Review of Systems
Allergies reviewed?: Yes
All Other Systems: ROS reviewed and negative except as documented in HPI and ROS
Constitutional: Reports fever
EENT: Reports no symptoms
Respiratory: Reports no symptoms
Cardiac: Reports no symptoms
ABD/GI: Reports abdominal pain (RLQ)
: Reports no symptoms
Musculoskeletal: Reports no symptoms
Skin: Reports no symptoms
Neurological: Reports no symptoms
Psychiatric: Reports no symptoms
Phy Exam
General Physical Exam
General Presentation: well appearing and no apparent distress
General age: appears stated age
General Skin: warm and dry
General Habitus: normal
General Mental: alert
Cardiovascular Exam
Cardiovascular Exam: regular rate/rhythm and no edema
Gastrointestinal Exam
Gastrointestinal Exam: normal bowel sounds, soft, no organomegaly, non distended and no cva tenderness
Palpation: right lower quadrant: Mild tenderness
Musculoskeletal Exam
Musculoskeletal Exam: full ROM and neuro vasc intact
Skin Exam
Skin Exam: normal color, warm/dry and no rash
Psychiatric Exam
Psychiatric Exam: normal mood/affect
Course
Orders/Labs/Results
Orders:
Orders
09/28/24 18:27
COVID-19 Antigen Urgent
Source: Nasal Swab
Complete Blood Count/With Diff Urgent
Comprehensive Metabolic Panel Urgent
Influenza A+B Rapid Molecular Urgent
EVELYN Source: Nasal Swab
Specimen Description:
09/28/24 20:02
CT Abd/pel W Iv And Oral Contr Urgent
Comment:
Reason For Exam: RLQ pain, fever. S/p appendectomy x 3 weeks.
Iohexol [Omnipaque] See Protocol PO NOW STA
09/28/24 22:57
Urinalysis Reflex To Culture Urgent
Date Specimen was Collected: 09/28/24
Time Specimen was Collected: 22:52
Abnormal Lab Results
09/28/24
18:27
RBC 4.62 L 10^6/uL
(4.70-6.10)
BUN 8 L mg/dl
(9-20)
09/28/24 18:27
09/28/24 18:27
Vital Signs
Initial and Last Documented VS:
Initial Vital Signs
Temp Pulse Resp BP Pulse Ox
98.4 F 82 18 146/90 98
09/28/24 18:12 09/28/24 18:12 09/28/24 18:12 09/28/24 18:12 09/28/24 18:12
Last Documented Vital Signs
Temp Pulse Resp BP Pulse Ox
98.4 F 82 18 127/79 96
09/28/24 20:30 09/28/24 18:12 09/28/24 18:12 09/28/24 21:00 09/28/24 22:00
*Radiology
Radiology exam reviewed: radiology read reviewed
*Pulse Oximetry
Patient hypoxic: no
*Critical Care Note
Total Time (30-74mins, 75-104mins- exclusive of procedures): Not Applicable
ED Attending Note
-
Portions of this chart may have been created with voice recognition software.� Occasional wrong word or��sound alike� substitutions may have occurred due to the inherent limitations of voice recognition software.
Discharge Plan
Departure
Patient Disposition: Home (Routine Discharge)
Date of Disposition: 09/28/24
Time of Disposition: 23:10
Patient with high blood pressure during this ER visit?: No
Condition: Good
Covid-19: Not Applicable
Discharge Problem:
Fever
Instructions: Fever, Adult (DC)
Prescriptions:
No Action
ibuprofen 200 mg Tablet
400 mg PO Q8HPRN PRN (Reason: mild pain)
fluticasone propionate 50 mcg/actuation Carmen,Suspension
1 spray INTRANASAL DAILY
lamotrigine 100 mg Tablet
100 mg PO DAILY
escitalopram oxalate 20 mg Tablet
20 mg PO DAILY
cholecalciferol (vitamin D3) [Vitamin D3] 25 mcg (1,000 unit) Tablet
25 mcg PO DAILY
Medical Marijuana
1 inh inhalation DAILYPRN PRN (Reason: mild pain/anxiety)
acetaminophen [acetaminophen] 325 mg tablet
650 mg PO Q4HPRN PRN (Reason: mild pain) Qty: 1 0RF
oxycodone 5 mg tablet
5 mg PO Q4HPRN PRN (Reason: breakthrough/severe pain) Qty: 8 0RF
Referrals:
UNKNOWN - PT NOT,INTERVIEWE [Family Provider] -
Activity Restrictions/Additional Instructions:
Follow up with your family doctor. Return to the emergency department immediately for any changes in/worsening of your symptoms.
Interventions
Interventions:
*Risk Screen - Suicide Last Done: 09/28/24 18:12
*General Assessment Last Done: 09/28/24 18:12
*Neglect/Abuse Screening Last Done: 09/28/24 18:12
ED- Fall Risk Assessment Last Done: 09/28/24 20:27
*ED COVID-19 Vaccine History Last Done: 09/28/24 18:12
ED- Neurological Assessment Last Done: 09/28/24 20:27
ED-Skin Assessment Last Done: 09/28/24 20:27
Discharge Date and Time
Print Language: FRISIAN
== END 2024-09-28 23:27 | disposition home or self-care (01) ==
LOC: EMR 18:01
PROVIDERS: Emergency Medicine; Nurse Practitioner; EMERGENCY PHYSICIAN Student in an Organized Health Care Education/Training Program
DX: R10.31 Right lower quadrant pain (principal); R50.9 Fever, unspecified; Z11.52 Encounter for screening for COVID-19
CPT/HCPCS: 99285; 74177; 80053; 81003; 85025; 87502; 87811; Q9967